=== PATIENT | female | born 1985 | race Two or more races ===

== ENCOUNTER 2018-09-27 10:54 | Emergency (ER) | payer BC ==
[2018-09-27 10:58] VITALS: BP 126/71
--- NOTE | 2018-09-27 11:13 | ER Document Report ---
Addendum entered and electronically signed by ARNULFO HARLEY PA-C 09/27/18 13:25: Discharge - Discharge Clinical Impression: Bleeding in early Condition: Stable Disposition: HOME, SELF-CARE Additional Instructions: As reviewed, your hormone level does indicate that you are , but very early vs you having a spontaneous miscarriage. The ultrasound did not show any intrauterine at this time. You will need to have your hormone level rechecked in 2 to 3 days and possibly another ultrasound in the next 1 to 2 weeks. Maintain fluid intake Proper hygienic technique Keep the skin clean Tylenol/ibuprofen as needed F/u with your PCM/OBGYN in 3-5 days for a recheck Return to the ED with any development of GOETZ/fever, trouble with vision, eye redness, worsening pain, urethral discharge, urinary retention, blood in the urine, flank pain, abdominal pain, n/v, Chest Pain, shortness of breath, joint pains, trouble breathing, or any other worsening/concerning symptoms as needed otherwise. Forms: Elevated Blood Pressure, Follow-Up Laboratory Testing Referrals: [facility] [Provider Group] - Follow up as [facility] [NO LOCAL MD] - Follow up as needed Original Note: ED General - General Chief Complaint: OB Problem (<20wks) Stated Complaint: VAGINAL BLEEDING Time Seen by Provider: 09/27/18 11:08 Primary Care Provider: [facility] [Provider Group] - Follow up as needed [facility] [NO LOCAL MD] - Follow up as needed TRAVEL OUTSIDE OF THE [place] IN LAST 30 DAYS: No - HPI Notes: Patient is a 33-year-old female G2, P1 approximately 6 weeks by gestation who presents to the emergency department complaining of spotting this morning. Patient states that she took 4 home tests 3 to 4 days ago that were all positive. Last menstrual period was the end of August. She is otherwise eating and drinking without difficulty. She is urinating normally and having normal bowel movements. No other vaginal discharge or odor. No concern of STD or STI. Denies any headache, fever, URI, sore throat, chest pain, palpitations, syncope, cough, shortness of breath, wheeze, dyspnea, abdominal pain, nausea/vomiting/diarrhea, urinary retention, dysuria, hematuria, back pain, or rash. - Related Data Allergies/Adverse Reactions: No Known Allergies Allergy (Verified 09/27/18 10:54) Past Medical History - General Last Menstrual Period: 09/13/18 - Social History Smoking Status: Former Smoker Chew tobacco use (# tins/day): No Frequency of alcohol use: Social Drug Abuse: None Family History: Reviewed & Not Pertinent Patient has suicidal ideation: No Patient has homicidal ideation: No Renal/ Medical History: Denies: Hx Peritoneal Dialysis Review of Systems - Review of Systems -: Yes All other systems reviewed and negative Physical Exam - Vital signs Vitals: Temp Pulse Resp BP Pulse Ox 98.4 F 82 18 126/71 H 99 09/27/18 10:58 09/27/18 10:58 09/27/18 10:58 09/27/18 10:58 09/27/18 10:58 - Notes Notes: PHYSICAL EXAMINATION: GENERAL: Well-appearing, well-nourished and in no acute distress. LUNGS: Breath sounds clear to auscultation bilaterally and equal. No wheezes rales or rhonchi. HEART: Regular rate and rhythm without murmurs, rubs, gallops. ABDOMEN: Soft, nontender, nondistended abdomen. No guarding, no rebound. No masses appreciated. Normal bowel sounds present. No CVA tenderness bilaterally. : deferred Musculoskeletal: FROM to passive/active. Strength 5+/5. Extremities: No cyanosis, clubbing, or edema b/l. NEUROLOGICAL: Normal speech, normal gait. PSYCH: Normal mood, normal affect. SKIN: Warm, Dry, normal turgor, no rashes or lesions noted. Course - Re-evaluation Re-evalutation: 09/27/18 13:16 Patient is an afebrile, well-hydrated, 33-year-old female who presents to the ED with bleeding in early . Vitals are acceptable without any significant tachycardia, tachypnea, or hypoxia. PE is otherwise unremarkable. UA unremarkable for acute pathology. HCG low at 69. TVUS unremarkable at this time due to most likely early preg vs spont miscarriage. Patient is nontoxic- appearing is tolerating p.o. without any difficulties. No other labs or imaging warranted at this time based on H&P. Low suspicion/risk for acute appendicitis, bowel obstruction, acute cholecystitis, acute cholangitis, perforated divert iculitis, incarcerated hernia, pancreatitis, perforated ulcer, peritonitis, sepsis, pelvic inflammatory disease, ectopic (within reason at this time-cannot adequately r/o), tubo-ovarian abscess, ovarian torsion, or other systemic emergent condition at this time. Patient is aware that her condition can change from initial presentation and she needs to monitor symptoms closely and seek medical attention if any acute changes. She has no abd pain or tenderness. Recheck HCG in 2-3 days, may need repeat US next week as well. Conservative measures otherwise for symptoms. Recheck with your PCM/OBGYN in 3- 5 days. Return to the ED with any worsening/concerning symptoms otherwise as reviewed in discharge. Patient is in agreement. - Vital Signs Vital signs: Temp Pulse Resp BP Pulse Ox 98.4 F 82 18 126/71 H 99 09/27/18 10:58 09/27/18 10:58 09/27/18 10:58 09/27/18 10:58 09/27/18 10:58 - Laboratory Laboratory results interpreted by me: 09/27/18 09/27/18 11:18 11:18 Beta HCG, Quant 69.18 H Urine Protein 30 H Urine Blood LARGE H Ur Leukocyte Esterase TRACE H Discharge - Discharge Clinical Impression: Bleeding in early Condition: Stable Disposition: HOME, SELF-CARE Additional Instructions: As reviewed, your hormone level does indicate that you are , but very early vs you having a spontaneous miscarriage. The ultrasound did not show any intrauterine at this time. You will need to have your hormone level rechecked in 2 to 3 days and possibly another ultrasound in the next 1 to 2 weeks. Maintain fluid intake Proper hygienic technique Keep the skin clean Tylenol/ibuprofen as needed F/u with your PCM/OBGYN in 3-5 days for a recheck Return to the ED with any development of GOETZ/fever, trouble with vision, eye redness, worsening pain, urethral discharge, urinary retention, blood in the urine, flank pain, abdominal pain, n/v, Chest Pain, shortness of breath, joint pains, trouble breathing, or any other worsening/concerning symptoms as needed otherwise. Forms: Elevated Blood Pressure Referrals: [facility] [Provider Group] - Follow up as needed [facility] [NO LOCAL MD] - Follow up as needed
[2018-09-27 11:52] LABS: APPEARANCE,URINE CLOUDY; BILIRUBIN,URINE NEGATIVE (NEGATIVE); COLOR,URINE RED; GLUCOSE, URINE NEGATIVE (NEGATIVE); KETONES,URINE NEGATIVE (NEGATIVE); LEUKOCYTE ESTERASE,URINE TRACE (NEGATIVE); NITRITE,URINE NEGATIVE (NEGATIVE); PROTEIN,URINE 30 mg/dL (NEGATIVE); URINE SPECIFIC GRAVITY 1.012; UROBILINOGEN,URINE NEGATIVE mg/dL (<2.0)
--- NOTE | 2018-09-27 13:05 | RADIOLOGY REPORT (SQ) ---
EXAM DESCRIPTION: U/S OB TRANSVAG W/DOPPLER COMPLETED DATE/TIME: 09/27/2018 12:48 pm REASON FOR STUDY: preg/bleeding COMPARISON: None. TECHNIQUE: Transvaginal static and realtime grayscale images acquired of the pelvis. Additional sana cted spectral and color Doppler images recorded. All images stored on PACs. CLINICAL AGE: 2 week 0 day B[facility].18 LIMITATIONS: None. FINDINGS: UTERUS: No visualized intrauterine . RIGHT ADNEXA: Normal ovary with normal vascular flow. No adnexal free fluid. No adnexal masses. LEFT ADNEXA: Normal ovary with normal vascular flow. No adnexal free fluid. No adnexal masses. FREE FLUID: None. OTHER: No other significant finding. IMPRESSION: NO VISUALIZED INTRA- OR EXTRAUTERINE . bHCG LEVEL TOO LOW TO EXPECT VISUALIZATION OF . ECTOPIC CANNOT BE EXCLUDED. FOLLOW-UP ULTRASOUND AND SERIAL BHCG LEVELS STRONGLY RECOMMENDED TO ACCURATELY ASSESS STATU S. TECHNICAL DOCUMENTATION: JOB ID: [id number] [employer]- All Rights Reserved Reading location - IP/workstation name: [email or web address]
== END 2018-09-27 13:28 | disposition home or self-care (01) ==
LOC: ER 10:54
DX: O20.9 Hemorrhage in early pregnancy, unspecified (principal); Z3A.01 Less than 8 weeks gestation of pregnancy; Z87.891 Personal history of nicotine dependence
CPT/HCPCS: 36415; 76817; 81001; 84702; 86900; 86901; 93976; 99284

== ENCOUNTER 2019-02-22 08:33 | Emergency (ER) | payer OTHER, BC ==
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
[2019-02-22 11:05] VITALS: BP 121/72
== END 2019-02-22 11:05 | disposition home or self-care (01) ==
LOC: ER 08:33
DX: O9A.212 Injury, poisoning and certain other consequences of external causes complicating pregnancy, second trimester (principal); M25.511 Pain in right shoulder; O26.892 Other specified pregnancy related conditions, second trimester; R10.31 Right lower quadrant pain; V87.7XXA Person injured in collision between other specified motor vehicles (traffic), initial encounter; Z3A.15 15 weeks gestation of pregnancy
CPT/HCPCS: 99284